=== PATIENT | male | born 1985 | race Caucasian/White ===

== ENCOUNTER 2017-04-14 09:47 | Emergency (ER) | payer SELFPAY ==
--- NOTE | 2017-04-14 10:25 | RAD ---
LEFT FOREARM TWO VIEWS: History: Pain. Bruising. Comparison: None. FINDINGS: There is soft tissue swelling. No fracture. No cortical irregularity or periosteal reaction. IMPRESSION: No fracture. POS: [facility]
--- NOTE | 2017-04-14 10:31 | RAD ---
LEFT HUMERUS TWO VIEWS: History: Swelling. Pain. Comparison: None. FINDINGS: There appears to be a dislocation at the level of the elbow joint. Evaluation is limited on this exam . Better interrogation with an elbow radiograph series is recommended. With regard to the proximal le ft upper extremity, there is evidence of soft tissue swelling and possible subcutaneous emphysema due to soft tissue injury. No fracture. No periosteal reaction. IMPRESSION: 1. Possible subluxation at the left elbow joint. Dedicated left elbow radiographs are recommended. 2. Soft tissue swelling of the proximal left upper extremity. No evidence of fracture. POS: [facility]
[2017-04-14] MEDS ORDERED: HYDROcodone/Acetaminophen 5/325 mg Tablet ONE (10:34)
--- NOTE | 2017-04-14 11:37 | RAD ---
LEFT ELBOW FOUR VIEWS: HISTORY: Fall. Pain. COMPARISON: None. FINDINGS: There is extensive soft tissue edema around the elbow. No displaced fracture or malalignment. No si gnificant joint effusion, although the lateral radiograph evaluation is limited. IMPRESSION: Extensive soft tissue edema. No acute fracture or malalignment. POS: [facility]
== END 2017-04-14 11:55 | disposition home or self-care (01) ==
LOC: ERS 09:47
DX: S53.402A Unspecified sprain of left elbow, initial encounter (principal); F41.9 Anxiety disorder, unspecified; F17.210 Nicotine dependence, cigarettes, uncomplicated; W01.0XXA Fall on same level from slipping, tripping and stumbling without subsequent striking against object, initial encounter

== ENCOUNTER 2018-05-28 14:00 | Inpatient (IN) | payer OTHER ==
[~2018-05-28 14:00] MED LIST: Heparin 1,000 UNITS/ML VIAL ONE
[2018-05-28] MEDS ORDERED: fentaNYL Citrate/PF 2,000 MCG in Sodium Chloride 0.9% 60 ML IV SCH ×2 (14:08→17:07)
[2018-05-28] MEDS ORDERED: Fentanyl 100 MCG/2 ML VIAL ONE ×3 (14:17→14:28)
[2018-05-28 14:24] LABS: Actual Bicarbonate (HCO3a) 20.1 mEq/L (22-28); Analyzer IN Cardio ER; Base Excess (BEa) -4.1 mEq/L (-2.0 to +3.0); Calcium, Ionized 1.02 mmol/L (1.12-1.30); Carboxyhemoglobin (COHb) 0.1 gm% (0.0-3.0); Hemoglobin (Hb) 12.7 g/dL (14.0-18.0); O2 Tension (PaO2) 385.6 mmHg (80.0-100.0); Potassium - ABG Lab 3.35 mmol/L (3.70-5.30); pH, Arterial 7.39 (7.35-7.45)
[2018-05-28] MEDS ORDERED: Rocuronium Bromide 10 MG/ML (10ML VIAL) ONE (14:31)
[2018-05-28 14:36] LABS: Bilirubin Small (Negative); Blood, Urine Negative (Negative); Clarity CLEAR (Clear); Glucose, Urine (Dipstick) Negative (Negative); Leukocyte Negative (Negative); Nitrite Negative (Negative); Protein, Urine (Dipstick) 30 mg/dL (Neg-Trace); Specific Gravity, Urine 1.036 (1.002-1.036)
--- NOTE | 2018-05-28 14:36 | RAD ---
PORTABLE CHEST: DATE: 05/28/2018. PROVIDED CLINICAL HISTORY: Respiratory insufficiency. FINDINGS: Comparison 06/21/2016. Cardiac silhouette appears enlarged which may be least partially on the basis of portable technique. Endotracheal tube is noted, the tip of which projects above the level of the [place]. Bibasilar pleural parenchymal opacities are noted. The lungs are hypoinflated. The supine nature of the study limits sensitivity for detection of pneumothorax. IMPRESSION: As above. POS: [facility]
[2018-05-28 14:37] LABS: Bacteria/HPF None Seen HPF (None Seen); Hyaline Casts/LPF 7-10 HYALINE CAST LPF (0-3 Hyaline); Pathc Cast-AUWi Flag 0.95 (0-2.49); RBC/HPF 0-3 HPF (0-3); Squamous Epithelial 0-3 HPF (0-3); WBC/HPF 0-3 HPF (0-3)
[2018-05-28 14:43] LABS: Acetaminophen Less than 6.0 mcg/mL (10.0-30.0); Alcohol Less than 10 mg/dL (Less than 10); Salicylate Less than 8.0 mg/dL (15.0-30.0)
[2018-05-28 14:44] LABS: Amphetamine Detected (NotDetected); Barbiturates Screen Not Detected (NotDetected); Benzodiazepine Screen Not Detected (NotDetected); Cocaine Metabolite Screen Not Detected (NotDetected); Medtox Control Line Valid? VALID (VALID); Medtox Reader # READER 1; Methadone Not Detected (NotDetected); Methamphetamine Detected (NotDetected); Opiate Screen Not Detected (NotDetected); Oxycodone Screen Not Detected (NotDetected); Phencyclidine (PCP) Not Detected (NotDetected); THC/Cannabinoid Screen Not Detected (NotDetected); Tricyclic Screen Not Detected (NotDetected)
[2018-05-28 15:36] LABS: Puncture Site LB
[2018-05-28] MEDS ORDERED: Acetaminophen 325 MG TAB PO PRN (15:36)
[2018-05-28] MEDS ORDERED: traMADol HCl 50 MG TAB PO PRN (15:36)
[2018-05-28] MEDS ORDERED: Ondansetron PF 4 MG/2 ML Vial IV PRN (15:36)
[2018-05-28] MEDS ORDERED: Morphine 4 MG/ML VIAL SLOW IVP PRN (15:36)
[2018-05-28] MEDS ORDERED: Fentanyl 100 MCG/2 ML VIAL SLOW IVP PRN (15:36)
[2018-05-28] MEDS ORDERED: Meperidine HCl/PF 25 MG/ML VIAL IM PRN (15:42)
[2018-05-28] MEDS ORDERED: TETANUS AND DIPHTHERIA TOX/PF 0.5 ML DISP.SYRIN IM SCH (15:45)
[2018-05-28 16:02] VITALS: BMI 29.0
[2018-05-28 16:08] LABS: INR-International Normal Ratio 1.1; PTT 30.4 SEC (22.9-36.1); Prothrombin Time 13.8 SEC (12.0-14.7)
[2018-05-28 16:20] LABS: Actual Bicarbonate (HCO3a) 22.6 mEq/L (22-28); Base Excess (BEa) -3.4 mEq/L (-2.0 to +3.0); CO2 Tension 44.2 mmHg (35.0-45.0); Calcium, Ionized 1.07 mmol/L (1.12-1.30); Carboxyhemoglobin (COHb) 1.4 gm% (0.0-3.0); O2 Tension (PaO2) 86.5 mmHg (80.0-100.0); Potassium - ABG Lab 3.57 mmol/L (3.70-5.30); pH, Arterial 7.33 (7.35-7.45)
[2018-05-28 16:21] LABS: Puncture Site LRA
[2018-05-28] MEDS ORDERED: Ventilator Sedation Protocol 1 EACH FS ONE (16:32)
[2018-05-28] MEDS ORDERED: CCU Electrolyte Replacement 1 EACH FS ONE (16:32)
[2018-05-28] MEDS ORDERED: DISCONTINUE PREVIOUS NARCOTIC PAIN MEDICATIONS AND BENZODIAZEPINES FS SCH (17:07)
[2018-05-28] MEDS ORDERED: Fentanyl BOLUS 250 ML IVPB PRN (17:07)
[2018-05-28] MEDS ORDERED: Morphine 2 MG/ML SYRINGE SLOW IVP PRN (17:07)
[2018-05-28] MEDS ORDERED: Propofol BOLUS 1,000 MG/100 ML VIAL IV PRN (17:07)
[2018-05-28] MEDS ORDERED: Potassium Chloride 20 MEQ TAB PO PRN (17:10)
[2018-05-28] MEDS ORDERED: Potassium Chloride 40 MEQ in Sodium Chloride 0.9% 250 ML 250 ML IVPB PRN (17:10)
[2018-05-28] MEDS ORDERED: Magnesium 2 GM/50 ML 2 GM in Premix Bag 1 BAG IVPB PRN (17:10)
[2018-05-28] MEDS ORDERED: Potassium Phosphate 15 MMOL in Sodium Chloride 0.9% 250 ML 250 ML IV PRN (17:10)
[2018-05-28] MEDS ORDERED: Potassium Phosphate 12 MMOL in Sodium Chloride 0.9% 250 ML 250 ML IV PRN (17:10)
[2018-05-28] MEDS ORDERED: Potassium Chloride 40 MEQ in Premix Bag 1 BAG IVPB PRN (17:10)
[2018-05-28] MEDS ORDERED: Magnesium Oxide 400 MG TAB PO PRN ×2 (17:10)
[2018-05-28] MEDS ORDERED: CCU ELECTROLYTE REPLACEMENT PROTOCOL FS PRN (17:10)
[2018-05-28] MEDS ORDERED: Potassium Phosphate 9 MMOL in Sodium Chloride 0.9% 100 ML IVPB PRN (17:10)
[2018-05-28] MEDS: Pen G 2.5 MILL.UNITS/50 ML BAG IVPB SCH ×2 (17:16→20:52)
[2018-05-28] MEDS: Lactated Ringer's 1,000 ML IV SCH (17:17)
[2018-05-28] MEDS: Propofol 1,000 MG/100 ML VIAL IV PRN ×2 (17:25→20:53)
--- NOTE | 2018-05-28 17:34 | RAD ---
PORTABLE CHEST: 05/28/18 PROVIDED CLINICAL HISTORY: Respiratory insufficiency. FINDINGS: Comparison exam performed earlier same date. Bibasilar pleural parenchymal opacity persists. Endotrac heal tube is again noted, the tip projects in the region of the thoracic inlet. There is no evidence for pneumothorax. IMPRESSION: Bibasilar pleural parenchymal opacities. POS: [facility]
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
--- NOTE | 2018-05-28 18:46 | OP ---
DATE OF PROCEDURE: 05/28/2018 PREOPERATIVE DIAGNOSIS: Abscess finger, abscess, metacarpophalangeal joint. FINDINGS AND POSTOPERATIVE DIAGNOSES: 1. Abscess finger, abscess, metacarpophalangeal joint. 2. Necrosis found in the retinacular tissue indicative of more than 24-hour old lesion. 3. Methamphetamine use with combative presentation at the first treated facility. PROCEDURES PERFORMED: 1. Incision and drainage of abscess finger. 2. Arthrotomy with metacarpophalangeal joint drainage. CULTURES SENT: Yes, two times culture sent of tissue of the joint and the wound respectively and the third culture was tissue from the debridement. ESTIMATED BLOOD LOSS: 10 mL. TOURNIQUET TIME: 11 minutes. INDICATIONS: The patient presented to [facility] Room where he had a wound with gross purulence, erythema of the middle of the metacarpal level and combativeness with inappropriate behavior. He was intubated, referred to us for definitive care. On my exam; the patient was already intubated, he did not demonstrate any lesions on his shoulder, elbows, wrist, toes, digit, heel, ankle, or leg other than that seen at the right proximal aspect of the proximal phalanx and metacarpophalangeal with erythema up to the level of the mid metacarpal. For this reason, because of possible sepsis, emergent incision and drainage was indicated. ANESTHESIA: General LMA technique, already intubated. DESCRIPTION OF PROCEDURE: After successful anesthesia listed above, the limb was prepped and draped. Time-out was done appropriately. He had a 1 cm wound with gross purulence, necrosis, so we extended it 15 mm distal and eventually it was extended 7 cm proximal until we got to the point where there was no gross purulence. He had gross purulence subcutaneously, so we debrided the 1 cm wound edge and underneath this was necrotic retinaculum and an abscess cavity with necrosis, so we removed the entire abscess cavity. We then made a radial side arthrotomy of the joint which was where the patient had a hole in the retinaculum and underneath this was gross purulence in the joint. We had to open the joint, we did a synovectomy, debrided the joint 2.5 cm proximal to the joint, but we extended it more proximal than this to make sure there was no further infection seen grossly. Once we had finished the debridement and felt there was no more necrotic tissue, we irrigated with 6 L of normal saline with antibiotics inside, deflated tourniquet, obtained hemostasis. We packed the wound as well as 2 cm circumferentially proximal, radial, lateral, and distal subcutaneously with normal saline soaked gauze. Dry gauze placed over along with Kerlix and Jamin wrap. The patient left the operating room without evidence of anesthetic or operative complication to the ICU already intubated. Job ID: [id number]
[2018-05-28] MEDS: Gentamicin Sulfate 80 MG in Premix Bag 1 BAG IVPB SCH (19:47)
[2018-05-28] MEDS: Famotidine/PF 20 mg/2ml Vial SLOW IVP SCH (20:52)
[2018-05-28] MEDS: Aspirin 81 mg Enteric Coated Tablet PO SCH (20:52)
[2018-05-28] MEDS: Vancomycin HCl 1.75 GM in Sodium Chloride 0.9% 500 ML IVPB SCH (20:53)
[2018-05-28] MEDS: Vecuronium 10 MG VIAL IV PRN ×2 (20:53→23:20)
[2018-05-28] MEDS ORDERED: Vancomycin HCl 1 GM in Premix Bag 1 BAG IVPB SCH (21:00)
[2018-05-28] MEDS ORDERED: Gentamicin 80 MG/2 ML VIAL IM SCH (22:00)
[2018-05-28] MEDS: Lorazepam 2 MG/ML VIAL SLOW IVP PRN (23:20)
[2018-05-29] MEDS: Propofol 1,000 MG/100 ML VIAL IV PRN ×4 (00:32→07:19)
[2018-05-29] MEDS: Pen G 2.5 MILL.UNITS/50 ML BAG IVPB SCH ×4 (00:33→13:38)
[2018-05-29] MEDS: Vecuronium 10 MG VIAL IV PRN (02:16)
[2018-05-29] MEDS: Lactated Ringer's 1,000 ML IV SCH ×2 (04:05→13:42)
[2018-05-29] MEDS: Gentamicin Sulfate 80 MG in Premix Bag 1 BAG IVPB SCH ×2 (04:06→10:01)
[2018-05-29] MEDS: Vancomycin HCl 1.75 GM in Sodium Chloride 0.9% 500 ML IVPB SCH (04:07)
[2018-05-29 06:03] LABS: #Basophils 0.1 thou/uL (0.0-0.2); #Eosinphils 0.1 thou/uL (0.0-0.7); #Lymphocytes 1.8 thou/uL (1.20-3.40); #Monocytes 0.8 thou/uL (0.11-0.59); #Neutrophils 4.9 thou/uL (1.40-6.50); %Basophils 0.7 % (0.0-1.0); %Eosinophils 1.5 % (0.0-10.0); %Lymphocytes 23.1 % (21.0-51.0); %Monocytes 10.2 % (0.0-10.0); %Neutrophils 64.5 % (42.0-75.0); Mean Corpuscular HGB CONC 33.6 g/dL (32.0-36.0); Mean Corpuscular Volume 95.1 fL (78.0-98.0); Mean Platelet Volume 7.5 fL (7.4-10.4); Platelet Count 213 thou/uL (130-400); RBC Distribution Width 11.3 % (11.5-14.5); Red Blood Cell (RBC) Count 3.75 mill/uL (4.70-6.10); White Blood Cell (WBC) Count 7.6 thou/uL (4.8-10.8)
[2018-05-29 06:12] LABS: ALT (SGPT) 38 U/L (8-55); AST (SGOT) 82 U/L (5-34); Alkaline Phosphatase 54 U/L (40-150); Anion Gap 9 mmol/L (10-20); BUN (Urea Nitrogen) 6 mg/dL (8.9-20.6); Bilirubin, Total 0.8 mg/dL (0.2-1.2); CK (CPK) 2018 U/L (30-200); Calc. Creatinine Clearance 190 mL/min (70-130); Carbon Dioxide 24 mmol/L (22-29); Chloride 107 mmol/L (98-107); Estimated GFR-MDRD Greater than 90; Globulin 2.6 g/dL (2.4-3.5); Glucose 78 mg/dL (70-105); Potassium 3.7 mmol/L (3.5-5.1); Protein, Total 5.6 g/dL (6.0-8.3); Sodium 136 mmol/L (136-145)
[2018-05-29] MEDS: Lorazepam 2 MG/ML VIAL SLOW IVP PRN (07:20)
[2018-05-29 07:31] LABS: ALV-art Gradient 85.925 (0-20); Actual Bicarbonate (HCO3a) 24.9 mEq/L (22-28); Base Excess (BEa) 0.3 mEq/L (-2.0 to +3.0); CO2 Tension 40.3 mmHg (35.0-45.0); Calcium, Ionized 1.12 mmol/L (1.12-1.30); Hemoglobin (Hb) 12.1 g/dL (14.0-18.0); O2 Tension (PaO2) 77.6 mmHg (80.0-100.0); Potassium - ABG Lab 3.48 mmol/L (3.70-5.30); Puncture Site LRA; pH, Arterial 7.41 (7.35-7.45)
[2018-05-29] MEDS: Famotidine/PF 20 mg/2ml Vial SLOW IVP SCH ×2 (08:38→20:11)
[2018-05-29] MEDS: Aspirin 81 mg Enteric Coated Tablet PO SCH ×2 (08:38→20:11)
[2018-05-29] MEDS ORDERED: DC Sedation Protocol FS ONE (09:27)
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
[2018-05-29 11:49] LABS: Vancomycin, Trough 22.2 ug/mL
[2018-05-29] MEDS ORDERED: Meperidine HCl/PF 25 MG/ML VIAL IM PRN (12:37)
[2018-05-29] MEDS ORDERED: Morphine 4 MG/ML VIAL SLOW IVP PRN (12:38)
[2018-05-29] MEDS ORDERED: Morphine 4 MG/ML VIAL ONE (12:39)
--- NOTE | 2018-05-29 12:58 | RAD ---
PORTABLE CHEST: DATE: 05/29/2018. PROVIDED CLINICAL HISTORY: Respiratory insufficiency. FINDINGS: Comparison 05/28/2018. Interval improvement in aeration of the right lung base. Interval placement o f enteric catheter, the tip of which projects in the left upper quadrant. Additional significant int erval change with respect to the prior examination is not apparent, with limitations in evaluation fo r pleural fluid or pneumothorax given the supine nature of the study. IMPRESSION: As above. POS: [facility]
[2018-05-29] MEDS: Vancomycin HCl 1.5 GM in Sodium Chloride 0.9% 250 ML 300 ML IVPB SCH ×2 (13:37→20:12)
[2018-05-29 16:51] LABS: Syphilis Antibody Nonreactive (Nonreactive); Syphilis Antibody Index 0.02 S/CO (<1.00 Non-Reactive)
[2018-05-29 16:52] LABS: HBSAB Concentration 1.22 mIU/mL; HBSAg Index 0.24 S/CO (0-0.99); HIV (1/2) Antibody/Antigen Non-Reactive (NonReactive); HIV 1/2 INDEX 0.07 S/CO (<1.00); Hep B Surf AB Non-Reactive (NonReactive); Hep B Surf Ag Non-Reactive S/CO (NonReactive); Hep C IgG Ab Non-Reactive (NonReactive); Hep C Index 0.13 S/CO (0-0.79)
[2018-05-29] MEDS: Penicillin G Potassium 2.5 MILL.UNITS in Sodium Chloride 0.9% 50 ML IVPB SCH (20:11)
[2018-05-30] MEDS: Penicillin G Potassium 2.5 MILL.UNITS in Sodium Chloride 0.9% 50 ML IVPB SCH ×4 (00:18→13:07)
[2018-05-30] MEDS: Lactated Ringer's 1,000 ML IV SCH ×3 (00:29→21:25)
[2018-05-30] MEDS: Vancomycin HCl 1.5 GM in Sodium Chloride 0.9% 250 ML 300 ML IVPB SCH ×2 (04:18→13:07)
[2018-05-30] MEDS: Aspirin 81 mg Enteric Coated Tablet PO SCH ×2 (08:56→20:55)
[2018-05-30] MEDS: Famotidine/PF 20 mg/2ml Vial SLOW IVP SCH ×2 (08:56→20:54)
[2018-05-30] MEDS: HYDROcodone/Acetaminophen 5/325 mg Tablet PO PRN ×2 (10:39→19:15)
[2018-05-30] MEDS: Pen G 2.5 MILL.UNITS/50 ML BAG IVPB SCH (12:00)
--- NOTE | 2018-05-30 12:21 | SPC ---
ULTRASOUND GUIDED RIGHT UPPER EXTREMITY PICC PLACEMENT: DATE: 05/30/2018. COMPARISON: None. HISTORY: Hand infection in need of IV antibiotics. FINDINGS: Informed consent was obtained prior to the procedure. Right antecubital fossa prepped and draped in normal sterile fashion. The skin overlying the basilic vein on the right was anesthetized with 1% buffered Lidocaine. With direct sonographic guidance, vascular access is obtained via the right basilic vein and an 0.018 wire is advanced to the cavoatrial junction. Intravascular length is calculated at 41 cm and the PI CC is cut accordingly. The needle was removed and replaced with a peelaway sheath. The PICC is adva nced over the wire. The wire and peelaway sheath were removed. The tip of the catheter overlies the cavoatrial junction. Catheter flushes well and is ready for use. EXPOSURE DATA: 0.4 minutes fluoroscopic time, 1346 mGy*^cm2. IMPRESSION: Successful ultrasound-guided right upper extremity PICC placement as above. POS: [facility]
[2018-05-30 12:37] LABS: Anion Gap 13 mmol/L (10-20); BUN (Urea Nitrogen) Less than 4 mg/dL (8.9-20.6); Calc. Creatinine Clearance 165 mL/min (70-130); Carbon Dioxide 27 mmol/L (22-29); Chloride 101 mmol/L (98-107); Estimated GFR-MDRD Greater than 90; Glucose 140 mg/dL (70-105); Potassium 3.8 mmol/L (3.5-5.1); Sodium 137 mmol/L (136-145)
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
[2018-05-30] MEDS: metroNIDAZOLE 500 MG TAB PO SCH ×2 (14:55→20:54)
[2018-05-30] MEDS: cefTRIAXone\\ROCEPHIN 2 GM in Sodium Chloride 0.9% 100 ML IVPB SCH (14:58)
[2018-05-31] MEDS: HYDROcodone/Acetaminophen 5/325 mg Tablet PO PRN ×3 (02:33→19:57)
[2018-05-31] MEDS: Lactated Ringer's 1,000 ML IV SCH ×2 (04:15→20:00)
[2018-05-31 05:36] LABS: Anion Gap 11 mmol/L (10-20); BUN (Urea Nitrogen) 4 mg/dL (8.9-20.6); Calc. Creatinine Clearance 150 mL/min (70-130); Calcium 8.9 mg/dL (7.8-10.44); Carbon Dioxide 30 mmol/L (22-29); Chloride 101 mmol/L (98-107); Estimated GFR-MDRD Greater than 90; Glucose 165 mg/dL (70-105); Potassium 3.2 mmol/L (3.5-5.1); Sodium 139 mmol/L (136-145)
[2018-05-31] MEDS: Aspirin 81 mg Enteric Coated Tablet PO SCH ×2 (08:25→19:57)
[2018-05-31] MEDS: Famotidine/PF 20 mg/2ml Vial SLOW IVP SCH ×2 (08:25→19:57)
[2018-05-31] MEDS: metroNIDAZOLE 500 MG TAB PO SCH ×3 (08:25→19:57)
[2018-05-31] MEDS: cefTRIAXone\\ROCEPHIN 2 GM in Sodium Chloride 0.9% 100 ML IVPB SCH (14:39)
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
[2018-06-01] MEDS: Lactated Ringer's 1,000 ML IV SCH ×3 (01:50→20:07)
[2018-06-01] MEDS: HYDROcodone/Acetaminophen 5/325 mg Tablet PO PRN ×3 (06:27→19:56)
[2018-06-01 07:01] LABS: Anion Gap 13 mmol/L (10-20); BUN (Urea Nitrogen) 4 mg/dL (8.9-20.6); Calc. Creatinine Clearance 177 mL/min (70-130); Calcium 8.8 mg/dL (7.8-10.44); Carbon Dioxide 26 mmol/L (22-29); Chloride 104 mmol/L (98-107); Estimated GFR-MDRD Greater than 90; Glucose 120 mg/dL (70-105); Potassium 3.6 mmol/L (3.5-5.1); Sodium 139 mmol/L (136-145)
[2018-06-01] MEDS: metroNIDAZOLE 500 MG TAB PO SCH ×3 (08:49→19:58)
[2018-06-01] MEDS: Aspirin 81 mg Enteric Coated Tablet PO SCH ×2 (08:49→19:58)
[2018-06-01] MEDS: Famotidine/PF 20 mg/2ml Vial SLOW IVP SCH ×2 (08:49→19:58)
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
[2018-06-01] MEDS: Cipro 250 MG TAB PO SCH (19:57)
[2018-06-02] MEDS: HYDROcodone/Acetaminophen 5/325 mg Tablet PO PRN ×2 (05:29→09:56)
[2018-06-02] MEDS: Cipro 250 MG TAB PO SCH ×2 (05:30→22:25)
[2018-06-02] MEDS: Lactated Ringer's 1,000 ML IV SCH ×2 (05:30→18:09)
[2018-06-02 05:50] LABS: Anion Gap 10 mmol/L (10-20); BUN (Urea Nitrogen) 5 mg/dL (8.9-20.6); Calc. Creatinine Clearance 163 mL/min (70-130); Carbon Dioxide 31 mmol/L (22-29); Chloride 101 mmol/L (98-107); Estimated GFR-MDRD Greater than 90; Glucose 104 mg/dL (70-105); Potassium 3.5 mmol/L (3.5-5.1); Sodium 138 mmol/L (136-145)
[2018-06-02] MEDS: metroNIDAZOLE 500 MG TAB PO SCH ×3 (09:42→22:25)
[2018-06-02] MEDS: Aspirin 81 mg Enteric Coated Tablet PO SCH ×2 (09:42→22:25)
[2018-06-02] MEDS: Famotidine/PF 20 mg/2ml Vial SLOW IVP SCH ×2 (09:43→22:25)
[2018-06-02] MEDS ORDERED: Bacitracin Zinc Ointment 30 gm TUBE ONE (16:52)
[2018-06-02] MEDS ORDERED: Bupivacaine PF 0.5% 30 ML VIAL ONE (16:52)
[2018-06-02] MEDS ORDERED: Sodium Chloride 0.9% 30 ML ONE (16:52)
[2018-06-02] MEDS ORDERED: Famotidine/PF 20 mg/2ml Vial ONE (19:10)
[2018-06-02] MEDS ORDERED: Fentanyl 100 MCG/2 ML VIAL ONE ×2 (19:10→21:01)
[2018-06-02] MEDS ORDERED: Promethazine HCl 25 MG/ML VIAL SLOW IVP PRN (20:06)
[2018-06-02] MEDS ORDERED: Ondansetron HCl/PF 4 MG/2 ML Vial IVP PRN (20:06)
[2018-06-02] MEDS ORDERED: Meperidine HCl/PF 25 MG/ML VIAL SLOW IVP PRN (20:06)
[2018-06-02] MEDS ORDERED: Promethazine HCl 25 MG/ML VIAL IM PRN (20:06)
[2018-06-02] MEDS: Vancomycin HCl 1 GM in Premix Bag 1 BAG IVPB SCH (22:26)
[2018-06-03] MEDS: Lactated Ringer's 1,000 ML IV SCH (01:48)
[2018-06-03] MEDS: HYDROcodone/Acetaminophen 5/325 mg Tablet PO PRN ×3 (04:06→13:53)
[2018-06-03] MEDS: Cipro 250 MG TAB PO SCH (05:54)
[2018-06-03 06:12] LABS: Anion Gap 11 mmol/L (10-20); BUN (Urea Nitrogen) 13 mg/dL (8.9-20.6); Calc. Creatinine Clearance 153 mL/min (70-130); Calcium 8.7 mg/dL (7.8-10.44); Carbon Dioxide 25 mmol/L (22-29); Chloride 103 mmol/L (98-107); Estimated GFR-MDRD Greater than 90; Glucose 122 mg/dL (70-105); Potassium 3.9 mmol/L (3.5-5.1); Sodium 135 mmol/L (136-145)
[2018-06-03] MEDS: metroNIDAZOLE 500 MG TAB PO SCH (08:23)
[2018-06-03] MEDS: Aspirin 81 mg Enteric Coated Tablet PO SCH (08:24)
[2018-06-03] MEDS: Famotidine/PF 20 mg/2ml Vial SLOW IVP SCH (08:25)
[2018-06-03 09:38] VITALS: BP 110/63; TEMP 98.1
[2018-06-03] MEDS: Vancomycin HCl 1 GM in Premix Bag 1 BAG IVPB SCH (11:05)
== END 2018-06-03 14:10 | disposition home or self-care (01) | DRG 853 ==
LOC: ERS 14:00 → CCU 15:49 → SURG A 05-29 13:48
PROVIDERS: ADMIT Orthopaedic Surgery Hand Surgery; ATTEND Orthopaedic Surgery Hand Surgery
PROC: 0R9U0ZZ Drainage of Right Metacarpophalangeal Joint, Open Approach (ICD-10-PCS; principal; 2018-05-28)
PROC: 02HV33Z Insertion of Infusion Device into Superior Vena Cava, Percutaneous Approach (ICD-10-PCS; 2018-05-28)
PROC: B548ZZA Ultrasonography of Superior Vena Cava, Guidance (ICD-10-PCS; 2018-05-28)
PROC: 5A1935Z Respiratory Ventilation, Less than 24 Consecutive Hours (ICD-10-PCS; 2018-05-28)
DX: A41.9 Sepsis, unspecified organism (principal); J96.00 Acute respiratory failure, unspecified whether with hypoxia or hypercapnia; L02.511 Cutaneous abscess of right hand
CPT/HCPCS: 36415; 36569; 51702; 71045; 80048; 80053; 80170; 80202; 80306; 80307; 81003; 81015; 82550; 82805; 85025; 85610; 85730; 86706; 86780; 86803; 87040; 87070; 87076; 87077; 87086; 87205; 87340; 87389; 93005; 94002; 94003; 96374; C1751; J0696; J1580; J1644; J2060; J2270; J2405; J2540; J2704; J3010; J3370; J3490; J7050; S0020; S0028